=== PATIENT | female | born 1995 | race Caucasian/White ===

== ENCOUNTER 2022-04-02 09:25 | Inpatient (IN) | payer OTHER, SELFPAY ==
--- NOTE | 2022-03-28 12:11 | HP.PCM.OB_ITS ---
HPI - General General Date of Admission: 04/02/22 Date of Service: 04/02/22 Chief Complaint: HPI Narrative HPI: The patient is a 26 year old female presenting for pre-operative visit. She is scheduled for , for LGA fetus on 04/02/22. Procedure discussed along with risks, benefits and complications. Other alternatives discussed for management. Consent form signed? Yes. ? ? PAST MEDICAL HISTORY PAST MEDICAL HISTORY Diagnosis Date ? Allergies ? ? Anemia during in third trimester 01/15/2022 ? anxiety ? ? Anxiety state ? ? anxiety/depression ? Kidney stone ? ? age 13 ? ? PAST SURGICAL HISTORY PAST SURGICAL HISTORY Procedure Laterality Date ? PAST SURGICAL HISTORY OF ? ? ? wisdom teeth ? ? ? CURRENT MEDICATIONS Current Outpatient Medications Medication Sig Dispense Refill ? prental multivitamin 27 mg iron- 800 mcg tablet Take 1 tablet by mouth once daily. ? ? ? No current facility-administered medications for this visit. ? ? ALLERGIES: Cat Dander and Passion Fruit ? PERSONAL HISTORY: SOCIAL HISTORY Social History ? Tobacco Use ? Smoking status: Never ? Smokeless tobacco: Never ? Tobacco comments: ? ? no smoking in home Vaping Use ? Vaping Use: Never used Substance Use Topics ? Alcohol use: No ? Drug use: No ? FAMILY HISTORY: FAMILY HISTORY FAMILY HISTORY Problem Relation Age of Onset ? None Mother ? ? Heart Failure Father ? ? Drug abuse Father ? ? No Known Problems Brother ? ? No Known Problems Brother ? ? No Known Problems Maternal Grandmother ? ? No Known Problems Maternal Grandfather ? ? No Known Problems Paternal Grandmother ? ? No Known Problems Paternal Grandfather ? ? ? REVIEW OF SYMPTOMS: GENERAL: denies fevers or chills ENDOCRINOLOGY: has not been on steroids Cardiology : denies palpitations or chest pain Respiratory: denies SOB or cough Hematology: denies history of prolonged bleeding or easy bruising or VTE Allergy: Denies history of personal or family history of allergy to anesthesia ? PHYSICAL EXAMINATION: ? VITALS: Last menstrual period 06/17/2021. ? GENERAL: The patient is well nourished, well hydrated in no acute distress. , The patient is oriented to time, place, and person. NECK: Supple. No lynphadenopathy, normal thyroid, no thyromegaly. LUNGS: Clear to auscultation bilaterally. no wheezes, rhonchi or rales HEART: Regular rate and rhythm, Normal heart sounds, and No murmurs or gallops abd- soft, nontender, gravid ? IMPRESSION: Estimated Date of Delivery: 04/09/22 w/ LGA fetus, elects for primary c/s ? PLAN: The risks/benefits/alternatives and personal involved for the planned c- section were reviewed with the patient. Her questions were answered to her satisfaction and she desires to proceed. Consent was signed. I reviewed with her postop instructions and expectations. ? ? I have reviewed and updated past medical and surgical history, medications and allergies Maternal Data Information Final RICK: 04/02/22 Labs Labs Labs: No Data to Display Assessment & Plan (1) 39 weeks gestation of : (2) LGA (large for gestational age) fetus affecting management of mother:
[2022-04-02] VITALS (19 sets, daily range): BP systolic 85–109; BP diastolic 39–87; PULSE 64–88; RESP 16–18; TEMP 36.1–37.1; O2SAT 96–100; BMI 24.3
[2022-04-02] MEDS: Lactated Ringers 1,000 ML 999 ML IV (10:10)
[2022-04-02] MEDS: Acetaminophen 500 MG Tablet 1000 MG PO ×3 (10:29→22:32)
[2022-04-02 10:38] LABS: Basophil# 0.04 X10^3/uL; Basophil% 0.5 % (0-1); Eosinophil# 0.09 X10^3/uL; Eosinophils% 1.1 % (0-5); Hemoglobin 11.5 g/dL (12.0-15.0); Mean Corp Hgb Conc 32.9 g/dL (32-36); Mean Corpuscular Hgb 30.1 pg (27.0-32.0); Mean Corpuscular Volume 91.6 fL (81-99); Mean Platelet Vol. 10.9 fl (6.2-12.0); Monocyte# 0.67 X10^3/uL; Monocyte% 7.9 % (0-10); NRBC Flagged by Analyzer 0 % (0-5); Neutrophil # 5.95 X10^3/uL (2.7-7.7); Neutrophil % 70.4 % (47-70); Platelet Count 230 K/mm3 (150-450); RBC Distribution Width CV 13.5 % (11.6-14.6); RBC Distribution Width SD 44.7 fl (35.1-43.9); Red Blood Count 3.82 M/mm3 (4.2-5.4); White Blood Count 8.4 K/mm3 (4.4-11.0)
[2022-04-02] MEDS: Lactated Ringers 1,000 ML 150 ML IV (11:12)
[2022-04-02] MEDS: Sodium Citrate/Citric Acid 30 ML UDC PO (11:49)
[2022-04-02] MEDS: Cefazolin 2 GM in 0.9% Normal Saline 100 ML IV (12:18)
--- NOTE | 2022-04-02 12:52 | OP.PCM_ITS ---
Assessment & Plan (1) 39 weeks gestation of : (2) LGA (large for gestational age) fetus affecting management of mother: Maternal Data Information Final RICK: 04/09/22 Gestational age: 39 0/7 Details Operative Information Date of Procedure: 04/02/22 Pre-Operative Diagnosis: LGA fetus suspected clinically, elects for c/s Post-Operative Diagnosis: same Classification: Scheduled Procedure Type: low transverse radio electronics technician #1: Jillian Shields Type of Anesthesia: Spinal Anesthesiologist: Gamal Cuevas Special Medications: duramorph Antibiotic Given: Ancef 2 grams IV x1 Drain: Milligan to straight drain Estimated Blood Loss: 600 Fluids Replaced: 1000 Procedure Start Time: 12:26 Procedure Stop Time: 12:45 Time of Delivery: 12:28 Findings Description of Procedure: The patient was taken to the operating room. She was prepped and draped in the dorsal supine position with a leftward tilt. A Pfannenstiel skin incision was made approximately 2 cm above the symphysis pubis and carried through to underlying layer fascia with the scalpel. The fascia was incised incised in the midline and extended laterally with blunt dissection. The fascia was dissected off the rectus muscles with blunt dissection. The rectus muscles were in the midline and the peritoneum was entered bluntly. The peritoneal incision was stretched and the bladder blade was placed. The uterine incision was made in a low transverse fashion with the scalpel and extended superiorly and inferiorly with blunt dissection. The amniotic membranes were ruptured bluntly and clear amniotic fluid returned. The infant's head was brought to the incision in the flexed position and delivered without difficulty. The remainder of the was delivered with gentle traction and fundal pressure in the standard fashion. The mouth and nares were bulb suctioned. The cord was clamped and cut as the was stimulated. Cord clamping was delayed. The was handed off to the waiting nursing staff. The placenta was delivered with fundal massage and gentle traction in the standard fashion. The uterus was exteriorized and cleared of all clots and debris. The cervix was dilated with a ring forcep. The uterine incision was closed with #1 Vicryl in a running locked fashion. The incision was examined and was found to be hemostatic. The uterus was placed back into the peritoneal cavity and hemostasis was again confirmed. The rectus muscles were examined and any bleeding was Bovie cauterized. The parietal peritoneum and rectus muscles were closed en bloc with an 0 Vicryl running suture. The surgical teams outer gloves were then changed. The rectus fascia was examined and any bleeding was Bovie cauterized and the rectus fascia was closed with 1 Vicryl suture in a running standard fashion. The subcutaneous tissue was examining and any bleeding was Bovie cauterized. The subcutaneous tissue was reapproximated with 3-0 Vicryl suture. The skin was closed in a subcuticular fashion. I performed the remainder of the procedure with assistance. All sponge, lap, and needle counts were correct. The patient was taken to her room for recovery in a stable condition. Presentation: Positive for ROGELIO Amniotic Membrane Rupture Type: Spontaneous Amniotic Fluid Description: Clear Placental Delivery Description: Expressed Placenta Disposition: [facility] Specimen(s) Sent to Pathology: none Cord Vessel Description: 3 Vessels Cord Entanglement: None A Gender: Male ([place]) (1 minute): 9 (5 minute): 10
[2022-04-02] MEDS: Oxytocin 15 Units/NS 250ml 15 UNITS/250 ML IV.SOLN 83 UNITS IV (13:00)
[2022-04-02] MEDS: Ketorolac 30 MG/ML Syringe IV ×2 (15:08→21:13)
[2022-04-02] MEDS: Ondansetron 4 MG/2 ML Vial IV (15:35)
[2022-04-02] MEDS: Lactated Ringers 1,000 ML 100 ML IV (15:39)
[2022-04-03] MEDS: Ketorolac 30 MG/ML Syringe IV ×2 (03:43→09:18)
[2022-04-03] MEDS: 0.9% Saline Lock 10 ML Syringe IV ×2 (03:43→09:18)
[2022-04-03 03:45] VITALS: BP 90/57; PULSE 63; RESP 17; TEMP 36.6; O2SAT 100
[2022-04-03] MEDS: Acetaminophen 500 MG Tablet 1000 MG PO ×4 (04:37→22:34)
[2022-04-03 04:54] LABS: Hematocrit 28.6 % (37-47); Hemoglobin 9.6 g/dL (12.0-15.0); Mean Corp Hgb Conc 33.6 g/dL (32-36); Mean Corpuscular Hgb 30.8 pg (27.0-32.0); Mean Corpuscular Volume 91.7 fL (81-99); Mean Platelet Vol. 10.6 fl (6.2-12.0); Platelet Count 182 K/mm3 (150-450); RBC Distribution Width CV 13.7 % (11.6-14.6); RBC Distribution Width SD 45.5 fl (35.1-43.9); Red Blood Count 3.12 M/mm3 (4.2-5.4); White Blood Count 17.6 K/mm3 (4.4-11.0)
[2022-04-03 08:09] VITALS: BP 92/39; PULSE 66; RESP 16; TEMP 36.6; O2SAT 100
--- NOTE | 2022-04-03 08:49 | PCM.PN.OB ---
Subjective Subjective Pain well controlled. Average lochia. No nausea or vomiting other than immediately following surgery. Has been up and ambulated. Tolerating regular diet now. Catheter just removed this AM. Denies headache, visual changes, chest pain or shortness of breath. Objective Data Objective Data Vital Signs: Vital Signs Temp Pulse Resp BP Pulse Ox O2 Del Method 97.8 F 66 16 92/39 L 100 Room Air 04/03/22 08:09 04/03/22 08:09 04/03/22 08:09 04/03/22 08:09 04/03/22 08:09 04/03/22 08:09 Oxygen Delivery Method Room Air Weight: 64.41 kg Body Mass Index (BMI) 24.3 Intake & Output: Intake and Output for Last 24 Hours 04/01/22 04/02/22 04/03/22 23:59 23:59 23:59 Intake Total 1674 / 1674 1000 / 1000 Output Total 1250 / 1250 500 / 500 Balance 424 / 424 500 / 500 Lab / Micro Data Result Diagrams: 04/03/22 04:40 Labs: Laboratory Results - last 24 hr 04/02/22 10:10: WBC 8.4, RBC 3.82 L, Hgb 11.5 L, Hct 35.0 L, MCV 91.6, MCH 30.1, MCHC 32.9, RDW Std Deviation 44.7 H, RDW Coeff of Dae 13.5, Plt Count 230, MPV 10.9, Immature Gran % (Auto) 1.100 H, Neut % (Auto) 70.4 H, Lymph % (Auto) 19.0, Bleckley % (Auto) 7.9, Eos % (Auto) 1.1, Baso % (Auto) 0.5, Absolute Neuts (auto) 6.0, Absolute Lymphs (auto) 1.60, Nucleated RBC % 0 04/02/22 10:10: Blood Type A POSITIVE, Antibody Screen NEGATIVE 04/03/22 04:40: WBC 17.6 H, RBC 3.12 L, Hgb 9.6 L, Hct 28.6 L, MCV 91.7, MCH 30.8, MCHC 33.6, RDW Std Deviation 45.5 H, RDW Coeff of Dae 13.7, Plt Count 182, MPV 10.6 Physical Exam Narrative Awake, alert, in no acute distress. 2+ lower extremity edema, no clonus, 2+ DTR Const alert and no apparent distress General Appearance: cooperative GI GI Narrative: soft, moderate distention, fundus firm, appropriately tender. Abdominal bandage clean dry and intact Narrative: Fundus firm, below umbilicus. Assessment & Plan (1) Status post repeat low transverse section: PLAN: Postoperative day #1 status postprimary section for suspected LGA and unfavorable cervix, high head turn. Patient and are doing well. Working on breast-feeding this morning. Routine care. Mild acute blood loss anemia appropriate for surgery. Likely discharge home tomorrow.
[2022-04-03] MEDS: Senna/Docusate Sodium 1 Tablet PO (09:18)
[2022-04-03 11:43] VITALS: BP 96/43; PULSE 73; RESP 14; TEMP 36.4; O2SAT 97
[2022-04-03] MEDS: Ibuprofen 600 MG Tablet PO ×2 (15:23→21:23)
[2022-04-03 15:25] VITALS: BP 98/43; PULSE 93; RESP 14; TEMP 36.5; O2SAT 97
[2022-04-03 20:00] VITALS: BP 106/62; PULSE 86; RESP 16; TEMP 36.7; O2SAT 99
[2022-04-04 02:05] VITALS: BP 95/51; PULSE 71; RESP 16; TEMP 36.3
[2022-04-04] MEDS: Ibuprofen 600 MG Tablet PO ×2 (03:45→10:13)
[2022-04-04] MEDS: Acetaminophen 500 MG Tablet 1000 MG PO ×2 (04:33→10:11)
--- NOTE | 2022-04-04 08:31 | PCM.PN.OB ---
Subjective Subjective Pain well controlled. Average lochia. Tolerating regular diet. Objective Data Objective Data Vital Signs: Vital Signs Temp Pulse Resp BP Pulse Ox O2 Del Method 97.4 F L 71 16 95/51 L 99 Room Air 04/04/22 02:05 04/04/22 02:05 04/04/22 02:05 04/04/22 02:05 04/03/22 20:00 04/03/22 20:00 Oxygen Delivery Method Room Air Weight: 64.41 kg Body Mass Index (BMI) 24.3 Intake & Output: Intake and Output for Last 24 Hours 04/02/22 04/03/22 04/04/22 23:59 23:59 23:59 Intake Total 1674 / 1674 1000 / 1000 Output Total 1250 / 1250 1400 / 1400 Balance 424 / 424 -400 / -400 Lab / Micro Data Result Diagrams: 04/03/22 04:40 Physical Exam Const alert General Appearance: cooperative GI GI Narrative: soft, moderate distention, fundus firm, appropriately tender. Abdominal bandage clean dry and intact Assessment & Plan (1) Status post repeat low transverse section: PLAN: Postoperative day #2 status post primary section. Doing well. Mild acute blood loss anemia appropriate for blood loss during surgery. Will recommend continue vitamins and iron supplement at home. is breast-feeding and doing well (2) 39 weeks gestation of : (3) LGA (large for gestational age) fetus affecting management of mother:
--- NOTE | 2022-04-04 08:33 | PCM.DC.SUM ---
Providers Date of Admission: 04/02/22 Date of Discharge: 04/04/22 Primary Care Physician: Whitney Primary Care Phys Reason For Visit: PRIMARY C SECTION Diagnosis Discharge Diagnosis (1) Status post repeat low transverse section: Status: Acute Code(s): Z98.891 - History of uterine scar from previous surgery Plan: Postoperative day #2 status post primary section. Doing well. Mild acute blood loss anemia appropriate for blood loss during surgery. Will recommend continue vitamins and iron supplement at home. is breast-feeding and doing well (2) 39 weeks gestation of : Status: Acute Code(s): Z3A.39 - 39 weeks gestation of (3) LGA (large for gestational age) fetus affecting management of mother: Status: Acute Code(s): O36.60X0 - Maternal care for excessive growth, unspecified trimester, not applicable or unspecified Medications at Discharge Home Medications iron 50 mg iron tablet 65 tab PO anemia 04/02/22 [id number] 1 mg tablet tab PO 04/02/22 ibuprofen 600 mg tablet 600 mg PO Q6H PRN Pain 20 days #60 TABLETS 04/04/22 Hospital Course Operations - (Primary low transverse section) Procedures None Summary of Care Provided Hospital Course: 26-year-old nulliparous female admitted for primary section due to LGA fetus and unfavorable cervix, high head at term. Desired primary section. This was performed on 04/02/2022 without difficulty. By postoperative day #2 she is ambulating, urinating tolerating regular diet without difficulty. She had mild acute blood loss anemia appropriate for blood loss during surgery. She will be discharged home on iron. Weight / BMI Weight Weight: 64.41 kg Body Mass Index (BMI) 24.3 ABG / Lab / Microbiology Data Result Diagrams: 04/03/22 04:40 Meaningful Use Info Meaningful Use Diagnoses (Choose all that apply): None applicable Discharge Plan Admission Admit Date/Time: 04/02/22 09:25 Primary Reason for Your Visit: delivery Attending Provider: Tg Maurer Primary Care Provider: Care Physician,No Primary Discharge Orders/Prescriptions Prescriptions: New ibuprofen [ibuprofen] 600 MG tablet 600 mg PO Q6H PRN (Reason: Pain) 20 Days Qty: 60 1RF Continued iron 50 mg iron Tablet 65 tab PO [id number] 1 mg Tablet PO Referrals / Follow Up: Care Physician,No Primary [Primary Care Provider] - Disposition Disposition (needs filled in before D/C Order can be placed): Home, Self Care
[2022-04-04 09:05] VITALS: BP 111/60; PULSE 77; RESP 18; TEMP 36.7; O2SAT 97
[2022-04-04] MEDS: Senna/Docusate Sodium 1 Tablet PO (10:08)
[2022-04-04] MEDS: FLU VACC QS2022-23(6MOS UP)/PF 60 MCG/0.5 ML SYRINGE IM (10:10)
[2022-04-04] MEDS: oxyCODONE 5 MG Tablet PO (11:53)
--- NOTE | 2022-04-08 14:57 | NURSING ---
Follow Up questions asked by Irena at [facility] appt. Pt. reports she is feeling well, has some nipple pain and has been pumping. Denies questions or concerns. Coming Friday at 9am for follow up.
== END 2022-04-04 12:15 | disposition home or self-care (01) | DRG 787 ==
PROVIDERS: Admitting Provider Obstetrics & Gynecology; Visit Provider Obstetrics & Gynecology
PROC: 10D00Z1 Extraction of Products of Conception, Low, Open Approach (ICD-10-PCS; CPT 59514; principal; 2022-04-02 11:45)
DX: O36.63X0 Maternal care for excessive fetal growth, third trimester, not applicable or unspecified (principal); D62 Acute posthemorrhagic anemia; Z37.0 Single live birth; Z3A.39 39 weeks gestation of pregnancy; O99.02 Anemia complicating childbirth
CPT/HCPCS: 59050; 85025; 85027; 86850; 86900; 86901; 99221; J7120; 90686; A4216; G0378; J2405

== ENCOUNTER 2025-01-05 15:25 | Outpatient (CLI) | payer BC, SELFPAY ==
[2025-01-05 15:34] VITALS: BMI 23.8
[2025-01-05 15:43] VITALS: BP 107/54; PULSE 97
[2025-01-05 15:46] VITALS: PULSE 107; RESP 16; TEMP 36.4; O2SAT 100
--- NOTE | 2025-01-05 17:13 | OB.TRI.NOTE ---
HPI - General General Date of Admission: 01/05/25 Date of Service: 01/05/25 Chief Complaint: pain HPI Narrative CONY PRESTON, is a 29 F who presents with left sided abdominal pain that last about 10 minutes and has now resolved. Does have contractions but is not feeling the contractions. Good movement and no bleeding. Reassuring HR. Pain happened again while on unit and lasted only a few minutes in left Upper quadrant. [place] to parts. Maternal Data Information Final RICK: 03/04/25 Gestational age: 31+[facility] Medical History (Updated 01/06/25 @ 05:[address] Araceli Portillo MD) macrosomia Home Medications Medication Instructions Recorded Last Taken Type iron 50 mg iron tablet 65 tab PO DAILY anemia 04/02/22 01/05/25 12:00 History 65 tabs ojhuddhu-wvr-Ie-FA 1 mg 1 tab PO DAILY 04/02/22 12/28/24 21:00 History tablet 1 TAB Allergy/AdvReac Type Severity Reaction Status Date / Time apple AdvReac Other Verified 01/05/25 15:43 banana AdvReac Other Verified 01/05/25 15:43 passion fruit AdvReac Other Verified 01/05/25 15:43 pineapple AdvReac Other Verified 01/05/25 15:43 strawberry (strawberries) AdvReac Other Verified 01/05/25 15:43 Surgical History (Updated 04/12/22 @ 00:02 by Background Daemon) Status post repeat low transverse section Social History Smoking Status: Never smoker History Elective abortions Hx Para 0 Spontaneous abortions Hx # Term Pregnancies Ectopic pregnancies Hx # Pregnancies Multiple births # of living children NST FHR Rate Baby A Baseline: 145 Variability:: Moderate Accelerations:: 15 x 15 Decelerations:: None NST Reactive:: Yes Uterine Activity:: irregular non painful, mild Assessment & Plan (1) 31 weeks gestation of : (2) Abdominal pain affecting : PLAN: Plan Discharge with labor precautions
== END 2025-01-05 17:20 | disposition home or self-care (01) ==
LOC: WPOUT 15:35 → WP 15:36
PROVIDERS: Referring Provider Obstetrics & Gynecology; Visit Provider Obstetrics & Gynecology
DX: O99.891 Other specified diseases and conditions complicating pregnancy (principal); R10.12 Left upper quadrant pain; Z3A.31 31 weeks gestation of pregnancy
CPT/HCPCS: 59025; 59050; 99221; G0378